=== PATIENT | female | born 1990 | race Hispanic/Latino ===

== ENCOUNTER 2017-09-12 09:10 | Emergency (ER) | payer BC ==
[2017-09-12 09:34] VITALS: BMI 26.2
[2017-09-12] MEDS ORDERED: Sodium Chloride 0.9% 1,000 ML IV STA (09:56)
--- NOTE | 2017-09-12 10:19 | ED PDOC ---
Syncope/Near Syncope/Dizziness Time Seen by Provider: 09/12/17 09:44 Chief Complaint (Nursing): Syncope Chief Complaint (Provider): Syncope History Per: Patient History/Exam Limitations: no limitations Onset/Duration Of Symptoms: Mins (lasted 10 secs) Current Symptoms Are (Timing): Gone Now Activity At Onset Of Symptoms: Other (Riding bus) Associated Symptoms Preceding Syncopal Episode: Lightheadedness Seizure Or Post-ictal Symptoms: None Fall Associated With With Symptoms: No Additional Complaint(s): 27 y/o female who presents to the ED for evaluation after syncopal episode this morning. She states that while riding the bus to work today, she began feeling lightheaded, and then woke up laying down on the bus. Patient reports she was passed out for approximately 10 seconds. Was told her whole body seemed tight during her syncope episode, but no gross body shaking occurred. Patient woke up right away and returned to normal behavior. She admits to not eating breakfast this morning. She did have 1 episode of vomiting in the Uber she took here. Denies any associated chest pain, shortness of breath, headache, abdominal pain , leg pain, numbness, tingling, weakness, or dizziness. She has had vasovagal episodes in the past, which usually occur when she gets stressed. No neck pain. PMD: Provider TOYA Past Medical History Reviewed: Historical Data, Nursing Documentation, Vital Signs Vital Signs: Last Vital Signs Temp 99 F 09/12/17 09:34 Pulse 83 09/12/17 09:34 Resp 18 09/12/17 09:34 BP 95/53 L 09/12/17 09:34 Pulse Ox 100 09/12/17 09:34 - Medical History Other PMH: Vasovagal episodes - Surgical History Other surgeries: Cosmetic nose surgery - Family History Family History: States: Unknown Family Hx - Social History Current smoker - smoking cessation education provided: No Alcohol: Social Drugs: Denies - Allergies Allergies/Adverse Reactions: Allergies Allergy/AdvReac Type Severity Reaction Status Date / Time No Known Allergies Allergy Verified 09/12/17 09:55 Review of Systems ROS Statement: Except As Marked, All Systems Reviewed And Found Negative Constitutional: Negative for: Fever, Chills Eyes: Negative for: Vision Change Cardiovascular: Positive for: Light Headedness (prior to syncope). Negative for : Chest Pain Respiratory: Negative for: Cough, Shortness of Breath Gastrointestinal: Positive for: Vomiting (x1 episode). Negative for: Abdominal Pain, Diarrhea Genitourinary Female: Negative for: Dysuria, Hematuria Musculoskeletal: Negative for: Back Pain, Leg Pain Neurological: Positive for: Other (Syncopal episode x1 this morning). Negative for: Weakness, Numbness, Seizures, Headache, Dizziness Physical Exam - Reviewed Nursing Documentation Reviewed: Yes Vital Signs Reviewed: Yes - Physical Exam Appears: Positive for: Non-toxic, No Acute Distress Head Exam: Positive for: ATRAUMATIC, NORMAL INSPECTION, NORMOCEPHALIC Skin: Positive for: Normal Color, Warm, Dry Eye Exam: Positive for: EOMI, Normal appearance, PERRL ENT: Positive for: Normal ENT Inspection. Negative for: Nasal Congestion, Pharyngeal Erythema, Tonsillar Exudate Neck: Positive for: Normal, Painless ROM, Supple Cardiovascular/Chest: Positive for: Regular Rate, Rhythm. Negative for: Murmur Respiratory: Positive for: Normal Breath Sounds. Negative for: Accessory Muscle Use, Respiratory Distress Gastrointestinal/Abdominal: Positive for: Normal Exam, Soft. Negative for: Tenderness Back: Positive for: Normal Inspection. Negative for: L CVA Tenderness, R CVA Tenderness, Vertebral Tenderness Extremity: Positive for: Normal ROM, Capillary Refill (< 2 secs). 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 Negative for: Motor/Sensory Deficits, Aphasia, Facial Droop - Laboratory Results Result Diagrams: 09/12/17 10:35 09/12/17 11:15 Interpretation Of Abn Labs: 15.7 wbc - ECG ECG: Positive for: Interpreted By Me, Viewed By Ne ECG Rhythm: Positive for: Normal QRS, Normal ST Segment, Sinus Rhythm O2 Sat by Pulse Oximetry: 100 (RA) Pulse Ox Interpretation: Normal - CT Scan/US head Other Rad Studies (CT/US): Read By Radiologist Other Rad Interpretation: no acute - Progress ED Course And Treament: 1333: Stable. Pt states she had sore throat, but able to swallow this morning. Now feels chills. No headaches. Will give tylenol, po trial. 1521: Stable. Pt. mother at bedside. Ambulated with no issues. Not dizzy. Motrin for fever given. Pt. does not want to stay in the hospital for further evaluation and treatment. Aware to return right away if she changes her mind. Pt. has capacity to make decisions. Is AAOx3. Mom agree with her decision. Currently no pain. No weakness. Medical Decision Making Medical Decision Making: Time: 9:57 Initial Plan: --EKG --CMP --Troponin I --CBC --Urine test --POC blood glucose --NS IV 1000 ml at 1000 mls/hr --Pending CT Head w/o contrast Scribe Attestation: Documented by Malinda Jacob, acting as a scribe for Max Colbert MD Provider Scribe Attestation: All medical record entries made by the Scribe were at my direction and personally dictated by me. I have reviewed the chart and agree that the record accurately reflects my personal performance of the history, physical exam, medical decision making, and the department course for this patient. I have also personally directed, reviewed, and agree with the discharge instructions and disposition. Disposition - Clinical Impression Clinical Impression: Syncope, Fever - Patient ED Disposition Is Patient to be Admitted: No Counseled Patient/Family Regarding: Studies Performed, Diagnosis, Need For Followup - Disposition Referrals: [facility] [Outside] - 09/13/17 [facility] [place] [Outside] Disposition: Routine/Home Disposition Time: 15:29 Condition: STABLE Additional Instructions: You have chosen not to be admitted to the hospital today. Return right away for further evaluation and treatment. Look out for signs of weakness, dizziness, chest pain, shortness of breath, not feeling right. Instructions: Syncope (ED), Fever in Adults (ED) Forms: [facility] (N[place]alese), [facility] School/Work Excuse
[2017-09-12 10:41] LABS: BASO % 0.2 % (0.0-2.0); EOS % 0.2 % (0.0-4.0); HEMATOCRIT 37.6 % (34.0-47.0); LYMPH # 1.1 K/uL (1.0-4.3); LYMPH % 6.8 % (20.0-40.0); MEAN CORPUSCULAR HEMOGLOBIN 30.1 pg (27.0-31.0); MEAN CORPUSCULAR HGB CONC 34.2 g/dL (33.0-37.0); MEAN PLATELET VOLUME 8.5 fl (7.2-11.7); MONO # 0.8 K/uL (0.0-0.8); NEUT # 13.7 K/uL (1.8-7.0); NEUT % 87.8 % (50.0-75.0); PLATELET COUNT 267 K/uL (130-400); RED CELL DISTRIBUTION WIDTH 12.9 % (11.5-14.5); WHITE BLOOD COUNT 15.7 K/uL (4.8-10.8)
[2017-09-12 11:22] LABS: EOSINOPHIL 1 % (0-7); NEUTROPHIL 88 % (42-75); TOTAL CELLS COUNTED 100
[2017-09-12 11:39] LABS: ALB/GLOB RATIO 1.5 (1.0-2.1); ALKALINE PHOSPHATASE 41 U/L (38-126); ALT/SGPT 25 U/L (9-52); AST/SGOT 20 U/L (14-36); BILIRUBIN,TOTAL 0.8 mg/dl (0.2-1.3); BLOOD UREA NITROGEN 10 mg/dl (7-17); CALCIUM 8.3 mg/dL (8.4-10.2); CARBON DIOXIDE 24 mmol/L (22-30); CHLORIDE 106 mmol/L (98-107); GFR AFRICAN-AMERICAN > 60; GLUCOSE,RANDOM 91 mg/dL (65-105); POTASSIUM 3.6 MMOL/L (3.6-5.0); SODIUM 140 mmol/l (132-148); TOTAL PROTEIN 7.1 G/DL (6.3-8.2)
--- NOTE | 2017-09-12 12:14 | CARD ---
APPROVED REPORT EKG Measurement Heart [id number] <Conclusion> Normal sinus rhythm Incomplete RBBB
--- NOTE | 2017-09-12 12:37 | CT ---
PROCEDURE: CT HEAD WITHOUT CONTRAST. HISTORY: headache COMPARISON: None available. TECHNIQUE: Axial computed tomography images were obtained through the head/brain without intravenous contrast. Radiation dose: Total exam DLP = 765.45 mGy-cm. This CT exam was performed using one or more of the following dose reduction techniques: Automated exposure control, adjustment of the mA and/or kV according to patient size, and/or use of iterative reconstruction technique. FINDINGS: HEMORRHAGE: No intracranial hemorrhage. BRAIN: No mass effect or edema. No atrophy or chronic microvascular ischemic changes. VENTRICLES: Unremarkable. No hydrocephalus. CALVARIUM: Unremarkable. PARANASAL SINUSES: Unremarkable as visualized. No significant inflammatory changes. MASTOID AIR CELLS: Unremarkable as visualized. No inflammatory changes. OTHER FINDINGS: None. IMPRESSION: Normal CT of the Head. No intracranial mass, hemorrhage or evidence of acute infarct.
[2017-09-12 16:08] VITALS: BP 106/56; PULSE 90; RESP 19; TEMP 100.2; O2SAT 98
== END 2017-09-12 15:50 | disposition home or self-care (01) ==
LOC: H.ER 09:10
DX: R55 Syncope and collapse (principal); R50.9 Fever, unspecified
CPT/HCPCS: 70450; 80053; 81025; 82948; 84484; 85025; 93005; 96360; 99285; J7040